=== PATIENT | male | born 1990 | race Two or more races ===

== ENCOUNTER 2024-07-14 08:27 | Emergency (ER) | payer OTHER ==
[~2024-07-14] VITALS: Ht 180.3 cm; Wt 79.0 kg
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
[2024-07-14] MEDS: TETANUS-DIPTH-ACEL PERTUSSIS 0.5ML SYR Tdap IM ONE (09:00)
[2024-07-14] MEDS: BACITRACIN TOP OINT 1 UD PKG TOP ONE (09:00)
[2024-07-14] MEDS ORDERED: LIDOCAINE 1% (LOCAL ANESTH.) PF 5ml SDV ID ONE (09:00)
[2024-07-14 09:10] VITALS: BP 128/88; PULSE 96; RESP 16; TEMP 98.3; O2SAT 98
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
[2024-07-14] MEDS: LIDOCAINE 2% (LOCAL ANESTH.) PF 5ml SDV IJ ONE (09:38)
[2024-07-14] MEDS: LIDOCAINE 1% HCL (LOCAL ANESTH.) INJ 20ML MDV ID ONE (09:57)
== END 2024-07-14 10:12 | disposition home or self-care (01) ==
LOC: ER 08:27
DX: S61.512A Laceration without foreign body of left wrist, initial encounter (principal); X99.1XXA Assault by knife, initial encounter; Y93.89 Activity, other specified; Y92.89 Other specified places as the place of occurrence of the external cause; Y99.8 Other external cause status
CPT/HCPCS: 12002; 73110; 90471; 90715; 99283; J2003